=== PATIENT | male | born 1945 | race Caucasian/White ===

== ENCOUNTER 2016-08-26 09:01 | Day surgery (SDC) | payer MEDICARE ==
[~2016-08-26] VITALS: Ht 177.8 cm; Wt 89.9 kg
[2016-08-26 09:30] VITALS: BP 165/100; PULSE 63; RESP 18; O2SAT 100
[2016-08-26] MEDS ORDERED: ASPI81CH CHEW (09:59)
[2016-08-26] MEDS ORDERED: PRAV20TA2 PO (09:59)
[2016-08-26] MEDS ORDERED: METO25TA6 PO (09:59)
[2016-08-26] MEDS ORDERED: HYZA50TA2 PO (09:59)
[2016-08-26 10:15] LABS: AUTOMATED NEUTROPHIL # 3.5 TH/MM3 (1.8-7.7); BASOPHIL % 0.5 % (0.0-2.0); EOSINOPHIL # 0.1 TH/MM3 (0-0.4); EOSINOPHIL % 1.8 % (0.0-4.0); HEMATOCRIT 46.1 % (39.0-51.0); HEMO FLAGS DIFF FINAL; LYMPH % 28.8 % (9.0-44.0); LYMPHOCYTE # 1.7 TH/MM3 (1.0-4.8); MEAN CELL VOLUME 92.7 FL (80.0-100.0); MEAN CORPUSCULAR HEMOGLOBIN 32.6 PG (27.0-34.0); MEAN CORPUSCULAR HGB CONC 35.1 % (32.0-36.0); MONO % 10.2 % (0.0-8.0); NEUT % 58.7 % (16.0-70.0); PLATELET COUNT 196 TH/MM3 (150-450); RED BLOOD COUNT 4.97 MIL/MM3 (4.50-5.90); RED CELL DISTRIBUTION WIDTH 12.9 % (11.6-17.2)
[2016-08-26] MEDS ORDERED: INSULIN HUMAN REGULAR 1,000 UNITS/10 ML VIAL SQ PRN (10:15)
[2016-08-26] MEDS ORDERED: SODIUM CHLORID 0.9% 500 ML INJ 500 ML IV SCH (10:15)
[2016-08-26] MEDS ORDERED: LACTATED RINGER'S 1000 ML IV PRN (10:15)
[2016-08-26] MEDS ORDERED: LORazepam 1 MG TAB SL SCH (10:15)
[2016-08-26] MEDS ORDERED: POVIDONE IODINE 5% (ANTISEPSIS KIT) 4 APPLICATIONS EACH NARE PRN (10:15)
[2016-08-26] MEDS ORDERED: METOPROLOL TARTRATE 25 MG TAB PO PRN (10:15)
[2016-08-26] MEDS ORDERED: SODIUM CHLORID 0.9% 500 ML IV PRN (10:15)
[2016-08-26] MEDS ORDERED: CHLORHEXIDINE GLUCONATE 2 % 1 PACK (2 CLOTHS) TOPICAL PRN (10:15)
[2016-08-26 10:24] LABS: INTERNATIONAL NORMALIZED RATIO 0.9 RATIO; PROTHROMBIN TIME - PATIENT 10.3 SEC (9.8-11.6)
[2016-08-26 10:40] LABS: BICARBONATE 27.6 MEQ/L (21.0-32.0); POTASSIUM 4.4 MEQ/L (3.5-5.1)
[2016-08-26] MEDS ORDERED: MIDAZOLAM HCL 2 MG/2 ML VIAL ONE (12:20)
[2016-08-26] MEDS ORDERED: FAMOTIDINE 20 MG/2 ML VIAL ONE (12:20)
[2016-08-26] MEDS ORDERED: SODIUM CHLOR 0.9% 250 ML INJ 250 ML ONE (12:20)
[2016-08-26] MEDS ORDERED: ISOPROTERENOL HCL 1 MG/5 ML AMP ONE (12:20)
[2016-08-26] MEDS ORDERED: ONDANSETRON HCL 4 MG/2 ML VIAL IV PUSH ONE (13:03)
[2016-08-26] MEDS ORDERED: PROPOFOL 200 MG/20 ML AMP IV ONE (13:03)
--- NOTE | 2016-08-26 13:45 | CATHPROC ---
[facility] HIS Report Study Information Study Number Admission Scheduled Start Study Start [id number] Aug 26 2016 9:01AM 08/26/2016 Aug 26 2016 12:28PM Anita Service Electrophysiology Study Admit Source Facility Department Other [facility] - Human Resources Safety Manager Physician and Clinical Staff Initial Lashay Barrientos Casket Assembler Metal Zabrina Marlow,KAIAKO KURA TUARUA TECH2 Casket Assembler Metal Trav Phillips,RT(R) Other Anesthesia, QUANTITY SURVEYOR Recorder Ashley Oseguera,RN Scrub Enedelia Casas RCIS Equipment Time Expediter Service Order Description Size Mfg Part Number Used/Scraped [id number] 12:29 Unight INDUSTRIES PACK, CCL CUSTOM * Used *[id number] 12:29 Unight PACER FISH, LIMB * 2530 *[id number] Used [id number] 12:29 [employer] BLANKET,WARM AIR CCL * Used *[id number] 12:29 [employer] CATHETER, JSN, QUAD FR 5 Used *[id number] 12:29 [employer] CATHETER, JSN, QUAD FR 5 Used *[id number] 12:29 [employer] CATHETER, JSN, QUAD FR 5 Used *[id number] 12:29 [employer] CATHETER, JSN, QUAD FR 5 Used *[id number] 12:29 [employer] MEDICAL ELECTRODE KIT, BRENDON X SURFACE * [id number] Used [id number] 12:29 [employer] SHEATH, EPS, FR5 FAST CATH FR 5 Used *[id number] [id number] 12:29 [employer] SHEATH, EPS, FR5 FAST CATH FR 5 Used *[id number] 057517 12:29 [employer] SHEATH, EPS, FR5 FAST CATH FR 5 Used *[id number] 12:29 [employer] SHEATH, EPS, FR6 FAST CATH FR 6 [id number] Used [facility], ELECTROSURGICAL 12:29 * [id number] *[id number] Used SURGICAL GROUNDING (BLUE) Medication Medication Total Dose (Bolus/Oral) Medication Total Dosage/Unit 1% XYLOCAINE 20 mL Medications (Bolus/Oral) Medication Time Given Dosage/Unit Administered By Reason 1% XYLOCAINE 08/26/2016 1:04:22 PM 20 mL Lashay Aleman 20 mL 1% XYLOCAINE given in lab by Lashay Aleman in Right Groin via Subcutaneous. Ordered by Mike Aleman. Initial Case Assessment Cardiovascular HR Rhythm NIBP Chest Pain 60 Regular 135/77 0 Edema Present Skin color Skin None Normal Warm Dry Circulatory - Right Pulses Dorsalis Pedis 2 Scale (0,1,2,3,4,d) Circulatory - Left Pulses Dorsalis Pedis 2 Scale (0,1,2,3,4,d) Circulatory - Lower Extremities Color Lower Right Color Lower Left Normal Normal Neurological State Oriented to time-place- Alert Moves all extremities person Respiration - General Respiration Rate SpO2 (%) (B/min) 14 95 Final Case Assessment Cardiovascular HR Rhythm NIBP Chest Pain 62 regular 97/57 0 Edema Present Skin color Skin None Normal Warm Dry Circulatory - Right Pulses Dorsalis Pedis 2 Scale (0,1,2,3,4,d) Circulatory - Left Pulses Dorsalis Pedis 2 Scale (0,1,2,3,4,d) Circulatory - Lower Extremities Color Lower Right Color Lower Left Normal Normal Neurological State Oriented to time-place- Alert Moves all extremities person Respiration - General Respiration Rate SpO2 (%) O2 (lpm) (B/min) 14 98 6 Chronological Log Time Study Chronological Log 12:34:10 Patient arrived via Bed. 12:34:11 Patient Name, D.O.B, / Armband Verified By R.N. 12:34:12 Consent signed by the physician and the patient and verified by the Human Resources Safety Manager staff. 12:34:13 Pre-op and post- op instructions given; patient acknowledges understanding of instructions. 12:34:14 Verbal Stimulation=2 Physical Stimulation=2 Airway=2 Respiration=2 TOTAL=8. (0=absent, 1=li mited, 2=present) Anesthesia at bedside, Will QUANTITY SURVEYOR. Assumes care of patient. See anesth records for all medicatio ns and vitals during 12:34:25 case. 12:34:58 Patient has been NPO for More than 6Hrs. 12:34:59 Skin Breakdown-none per pt 12:35:07 Patient Warmer Placed on the Table. 12:35:08 Disposable Defibrillator Pads Placed On Patient. 12:35:09 Marian Prominences Protected 12:35:12 A # 20 IV was noted in the Hand (left). Grade = 0 0.9NS at KVO infusing 12:35:47 A # 20 IV was noted in the Hand (right). Grade = 0 0.9NS at KVO infusing 12:36:06 History and physical on the chart or being dictated. Assessment: Initial Case, HR=60 BPM, Rhythm=Regular, LVWA=040/77 mmhg, Chest Pain=0, Edema=None , Color=Normal, Skin = Warm, Dry Right Pulses: Lupillo Ped=2 Left Pulses: Lupillo Ped=2 12:36:09 Lower Right Extremities: Color=Normal Lower Left Extremities: Color=Normal Neurological: State=Alert, Ox3, CLARKE Respiration: Resp=14 B/min, SpO2=95 % 12:36:11 Table restraints applied according to hospital policy 12:49:45 Bilateral groins prepped with 2% chlorhexidine, and with a 3 min. waiting time. 12:51:24 MD arrived. 13:02:51 Reference ECG taken Time Out. Correct patient, procedure, procedure equipment, site and side verified with physicia n present. Time 13:03:01 concurred by MD, individual staff and QUANTITY SURVEYOR. Time Out #2 - Consents verified, patient in correct position, all results are labled and displa yed, safety precautions 13:03:18 taken, antibiotics administered. Time out concurred by MD, individual staff and QUANTITY SURVEYOR in procedu re 13:03:22 Case Start 13:04:22 20 mL 1% XYLOCAINE given in lab by Lashay Aleman in Right Groin via Subcutaneous. Ordered b Lashay Lane. 13:04:40 Vascular access was obtained in the Fem Vein (left). 13:04:43 Vascular access was obtained in the Fem Vein (left). 13:04:44 Vascular access was obtained in the Fem Vein (left). 13:05:04 Vascular access was obtained in the Fem Vein (left). 13:05:15 A SHEATH, EPS, FR5 FAST CATH FR 5 was advanced into the Fem Vein (right) using the Modified Seldinger technique. 13:05:30 A SHEATH, EPS, FR5 FAST CATH FR 5 was advanced into the Fem Vein (right) using the Modified Seldinger technique. 13:05:34 A SHEATH, EPS, FR5 FAST CATH FR 5 was advanced into the Fem Vein (right) using the Modified Seldinger technique. 13:05:36 A SHEATH, EPS, FR6 FAST CATH FR 6 was advanced into the Fem Vein (right) using the Modified Seldinger technique. A CATHETER, JSN, QUAD FR 5 was advanced vis Fem Vein (right) and placed in the CS. Placement wa s visually 13:08:48 confirmed under fluoroscopy. A CATHETER, JSN, QUAD FR 5 was advanced vis Fem Vein (right) and placed in the HIS. Placement w as visually 13:09:00 confirmed under fluoroscopy. A CATHETER, JSN, QUAD FR 5 was advanced vis Fem Vein (right) and placed in the RVA. Placement w as visually 13:10:40 confirmed under fluoroscopy. A CATHETER, JSN, QUAD FR 5 was advanced vis Fem Vein (right) and placed in the HRA. Placement w as visually 13:11:00 confirmed under fluoroscopy. 13:11:37 EP study in progress 13:21:54 Isuprel gtt discontinued 13:27:58 Case End 13:29:12 EP Procedure was performed. 13:29:37 Catheter(s) removed without difficulty 13:30:45 Sheath removed; pressure applied to access site by Enedelia Briscoe Assessment: Final Case, HR=62 BPM, Rhythm=regular, NIBP=97/57 mmhg, Chest Pain=0, Edema=None, Color=Normal, Skin = Warm, Dry Right Pulses: Lupillo Ped=2 Left Pulses: Lupillo Ped=2 13:36:35 Lower Right Extremities: Color=Normal Lower Left Extremities: Color=Normal Neurological: State=Alert, Ox3, CLARKE Respiration: Resp=14 B/min, SpO2=98 %, O2=6 lpm 13:37:41 No case complications noted. 13:37:43 Cine recording checked. 13:37:46 DOCU called. Spoke to Edwina 13:38:16 Defibrillator and ground pads removed. Skin intact. 13:40:45 Sterile dressing applied to site 13:45:34 Patient moved to [facility] End Study - Contrast Media Used In Study Contrast Total Opened (mL) Total Used (mL) Total Wasted (mL) Unspecified 0 0 0 End Study - Radiation Exposure Fluoro Time (minutes) 1.8 End Study - Sheaths Sheaths Pulled By Sheath Hold Time (min) Enedelia Casas 20 End Study - Patient Disposition Complications Transferred To Interventional Outcome No Telemetry Bed successful
[2016-08-26] MEDS ORDERED: LIDOCAINE HCL 1% 50 ML VIAL INFIL PRN (14:15)
[2016-08-26] MEDS ORDERED: LORazepam 2 MG/ML VIAL IV PRN (14:15)
[2016-08-26] MEDS ORDERED: ATROPINE SULFATE 1 MG/ML VIAL IV PRN (14:15)
[2016-08-26] MEDS ORDERED: ONDANSETRON HCL 4 MG/2 ML VIAL IV PRN (14:15)
[2016-08-26] MEDS ORDERED: METOCLOPRAMIDE HCL 10 MG/2 ML VIAL IV PRN (14:15)
[2016-08-26] MEDS ORDERED: SODIUM CHLOR 0.9% 250 ML INJ 250 ML IV PRN (14:15)
[2016-08-26] MEDS ORDERED: BACITRACIN OINT 0.9 GM PKT TOP ONE (14:15)
[2016-08-26] MEDS ORDERED: oxyCODONE/ACETAMINOPHEN 5 MG/325 MG TAB PO PRN ×2 (14:15)
--- NOTE | 2016-08-26 15:23 | EKG ---
Date Performed: 08/26/2016 Time Performed: 10:09:32 PTAGE: 71 years EKG: Sinus bradycardia Right bundle branch block Lateral T wave changes may be due to myocardial ischemia There is lateral ST segment elevation, which could actually represent lateral injury. As th ere's no prior tracing, clinical correlation will be extremely important Abnormal ECG NO PREVIOUS TRACING DOCTOR: Jacqueline Thomas Interpretating Date/Time 08/26/2016 15:22:47
== END 2016-08-26 16:25 | disposition home or self-care (01) ==
LOC: HDOC 09:01 → HDIC 09:01 → HDOC 16:25
PROVIDERS: ATTEND Internal Medicine Interventional Cardiology
DX: I47.1 Supraventricular tachycardia (principal); R00.2 Palpitations; R55 Syncope and collapse; I10 Essential (primary) hypertension; E78.5 Hyperlipidemia, unspecified; Z01.810 Encounter for preprocedural cardiovascular examination; Z01.818 Encounter for other preprocedural examination
CPT/HCPCS: 00537; 80048; 85025; 85610; 85730; 86850; 86900; 86901; 93005; 93620; 93623; C1730; C1732; J2250; J2405; J7050

== ENCOUNTER 2016-12-22 06:14 | Day surgery (SDC) | payer MEDICARE ==
[~2016-12-22] VITALS: Ht 179.1 cm; Wt 82.0 kg
[2016-12-22] VITALS (9 sets, daily range): BP systolic 117–147; BP diastolic 70–92; PULSE 53–58; RESP 18; TEMP 97.9–98.4; O2SAT 97–99
[~2016-12-22 06:14] MED LIST: ASPI81CH CHEW; HYZA50TA2 PO; METO25TA6 PO; PRAV20TA2 PO
[2016-12-22] MEDS ORDERED: CHLORHEXIDINE GLUCONATE 2 % 1 PACK (2 CLOTHS) TOPICAL PRN (06:45)
[2016-12-22] MEDS ORDERED: SODIUM CHLORID 0.9% 500 ML IV PRN (06:45)
[2016-12-22] MEDS ORDERED: CHLORHEXIDINE GLUCONATE 2 % 1 PACK (2 CLOTHS) TOPICAL SCH (06:45)
[2016-12-22] MEDS ORDERED: METOPROLOL TARTRATE 25 MG TAB PO PRN (06:45)
[2016-12-22] MEDS ORDERED: LORazepam 1 MG TAB SL SCH (06:45)
[2016-12-22] MEDS ORDERED: Hold AM Insulin & AM Hypoglycemic medications in diabetic patients PRN (06:45)
[2016-12-22] MEDS ORDERED: POVIDONE IODINE 5% (ANTISEPSIS KIT) 4 APPLICATIONS EACH NARE SCH (06:45)
[2016-12-22] MEDS ORDERED: LACTATED RINGER'S 1000 ML IV PRN (06:45)
[2016-12-22] MEDS ORDERED: POVIDONE IODINE 5% (ANTISEPSIS KIT) 4 APPLICATIONS EACH NARE PRN (06:45)
[2016-12-22] MEDS ORDERED: VANCOMYCIN 1000 MG/NS 250 ML IV SCH ×2 (06:45)
[2016-12-22] MEDS ORDERED: INSULIN HUMAN REGULAR 1,000 UNITS/10 ML VIAL SQ PRN (06:45)
[2016-12-22] MEDS ORDERED: ceFAZolin 2 GM PREMIX 50 ML IV SCH (06:45)
[2016-12-22] MEDS ORDERED: MUPIROCIN 2% OINT 1 APPLIC/GM SYR NASAL SCH (06:45)
[2016-12-22 07:13] LABS: AUTOMATED NEUTROPHIL # 3.2 TH/MM3 (1.8-7.7); BASOPHIL % 0.4 % (0.0-2.0); EOSINOPHIL # 0.1 TH/MM3 (0-0.4); EOSINOPHIL % 2.1 % (0.0-4.0); HEMATOCRIT 46.8 % (39.0-51.0); HEMO FLAGS DIFF FINAL; LYMPH % 29.4 % (9.0-44.0); LYMPHOCYTE # 1.7 TH/MM3 (1.0-4.8); MEAN CELL VOLUME 93.4 FL (80.0-100.0); MEAN CORPUSCULAR HEMOGLOBIN 32.5 PG (27.0-34.0); MEAN CORPUSCULAR HGB CONC 34.8 % (32.0-36.0); MONO % 11.4 % (0.0-8.0); NEUT % 56.7 % (16.0-70.0); PLATELET COUNT 177 TH/MM3 (150-450); RED BLOOD COUNT 5.01 MIL/MM3 (4.50-5.90); RED CELL DISTRIBUTION WIDTH 12.6 % (11.6-17.2); WHITE BLOOD COUNT 5.7 TH/MM3 (4.0-11.0)
[2016-12-22 07:30] LABS: APTT (PATIENT) 28.4 SEC (24.3-30.1); INTERNATIONAL NORMALIZED RATIO 0.9 RATIO; PROTHROMBIN TIME - PATIENT 10.3 SEC (9.8-11.6)
[2016-12-22 07:34] LABS: BICARBONATE 28.2 MEQ/L (21.0-32.0); POTASSIUM 3.7 MEQ/L (3.5-5.1)
[2016-12-22] MEDS ORDERED: LIDOCAINE HCL 2% 50 ML VIAL ONE (08:11)
[2016-12-22] MEDS ORDERED: HEPARIN-NS/PF INJ 1,000 ML ONE (08:11)
[2016-12-22] MEDS ORDERED: VANCOMYCIN 500 MG VIAL ONE (08:12)
[2016-12-22] MEDS ORDERED: ONDANSETRON HCL 4 MG/2 ML VIAL IV PUSH PRN (09:15)
[2016-12-22] MEDS ORDERED: ACETAMINOPHEN/CODEINE 300 MG/30 MG TAB PO PRN ×2 (09:15)
[2016-12-22] MEDS ORDERED: MAGNESIUM HYDROXIDE SUSP 30 ML CUP PO PRN (09:15)
[2016-12-22] MEDS ORDERED: SODIUM CHLORIDE 0.9% FLUSH 10 ML FLUSH IV FLUSH PRN (09:15)
--- NOTE | 2016-12-22 09:28 | CATHPROC ---
[employer] HIS Report Study Information Study Number Admission Scheduled Start Study Start [id number] Dec 22 2016 6:14AM 12/22/2016 Dec 22 2016 6:58AM Sharon Service Cardiac Pacer/ICD Admit Source Facility Department Other [facility] - Swimming Coach Or Instructor Physician and Clinical Staff Initial Lashay Barrientos Jack Prizer Aisha Siegel RN Other Anesthesia, ARCHITECTURAL TECHNOLOGIST Recorder Ame Egan,RT(R) TECH2 Scrub Jossue Capps RCIS(BS) Scrub Trav Phillips,RT(R) Procedures Performed Procedure Lead Insertion Equipment Time Quarter Section Ironer Description Size Mfg Part Number Used/Scraped [employer]/ EP 08:51 LEAD, INGEVITY MRI 52CM 52CM [id number] Used PACER [employer]/ EP 08:48 LEAD, INGEVITY MRI 59CM 59CM 7742 Used PACER [employer]/ EP 08:56 PACEMAKER, ACCOLADE MRI DR BREWSTER [id number] Used PACER DERMABOND, ADHESIVE SKIN [id number] 07:00 CORDIS/PACER * Used GLUE MINI *[id number] 07:00 ivi, Inc. SUTURE, STRIP PLUS 1/2" * Used *[id number] 07:00 [employer] PACER FISH, LIMB * 2530 *[id number] Used [id number] 07:00 [employer] PACER PACK, PACER CUSTOM * Used *[id number] 08:26 Thrill On PACER SAFE SHEATH, FR7, 13CM FR 7 [id number] Used 08:27 Thrill On PACER SAFE SHEATH, FR7, 13CM FR 7 [id number] Used 08:27 Needle Sponge Count 4 4 Used 08:27 Needle Sponge Count 4 44 Used SUTURE, 0 ETHIBOND [CT1] (CX21D), 8pk SUTURE, 2-0 VICRYL [CT1] ([id number]) SUTURE, 2-0 VICRYL [CT1] ([id number]) [id number] 07:00 [employer] BLANKET,WARM AIR CCL * Used *[id number] [facility] PAD, ELECTROSURGICAL 07:00 * [id number] *[id number] Used SURGICAL GROUNDING ORANGE [id number] 07:00 [employer] MIRI. / * Used *[id number] Equipment Model, Serial, Lot Number and Expiration Data Description Model Number Serial Number Lot Number Expiration Date LEAD, INGEVITY MRI 52CM 7741-52 [id number] 11-18-2018 LEAD, INGEVITY MRI 59CM 7742-59 [id number] 08-27-2018 PACEMAKER, ACCOLADE MRI DR L311 [id number] 10-25-2018 History: Current Medications Medication Dosage/Unit Route Frequency Last Date/Time Taken ASA Statins (any) LOPRESSOR History: Allergies Allergy Reaction No Known Allergies History: Risk Factors Family History of Hypertension Dyslipidemia Previous SD Previous Heart Failure Premature CAD Yes Yes No No No Prior Valve Prior PCI Prior CABG Surgery No No No Cerebrovascular Peripheral Artery Chronic Lung On Dialysis Diabetes Disease Disease Disease No No No No No History: Symptoms/Diagnosis Selection Items Syncope Labs Hgb (g/dl) Hct (%) RBC (MIL/MM3) WBC (l/cumm) Platelets (thousands) 11.60-17.00 35.00-51.00 4.00-5.90 4.00-11.00 150.00-450.00 16.3 46.8 5 5.7 177 Glucose (mg/dl) BUN (mg/dl) Creatinine (mg/dl) BUN:Creatinine (1:x) 74.00-106.00 7.00-18.00 0.50-1.30 10.00-20.00 93 27 1.2 22.5 Na (meq/l) K (meq/l) Cl (meq/l) CO2 (mmol/L) Ca (mg/dl) 136.00-145.00 3.50-5.10 98.00-107.00 21.00-32.00 8.50-10.10 138 3.7 104 28.2 9.2 PT (sec) PTT (sec) INR (PTT:PT) 9.80-11.60 24.30-30.10 0.90-1.10 10.3 28.4 0.9 Medication (Drip) Medication Time Given Dosage/Unit Concentration/Unit Diluent (ml) Solution ANCEF 12/22/2016 8:17:48 AM 2 g 2 g ANCEF given in lab by Anesthesia, ARCHITECTURAL TECHNOLOGIST in Right Antecubital via Peripheral IV. Ordered by Lashay Aleman. IV Solutions 12/22/2016 8:14:43 AM 0 mL (IV) 500 NaCl .9 IV Solutions given pre op by Aisha Siegel RN in Right Antecubital via Peripheral IV. Pump/Drip Sander w = 20 ml/hr using NaCl .9. Ordered by Lashay Aleman. IV Solutions 12/22/2016 8:15:10 AM 0 mL (IV) 500 NaCl .9 IV Solutions given pre op by Aisha Siegel, ALE in Left Antecubital via Peripheral IV. Pump/Drip Flow = 20 ml/hr using NaCl .9. Ordered by Lashay Aleman. VANCOMYCIN DRIP 12/22/2016 8:18:11 AM 1 g 1 g VANCOMYCIN DRIP given in lab by ANNA Raman in Right Antecubital via Peripheral IV. Ordered by Lashay Aleman. Initial Case Assessment Cardiovascular HR Rhythm NIBP Chest Pain 55 sr 92/54 0 Edema Present Skin color Skin None Normal Warm Dry Circulatory - Right Pulses Dorsalis Pedis Femoral 2 2 Scale (0,1,2,3,4,d) Circulatory - Left Pulses Dorsalis Pedis Femoral 2 2 Scale (0,1,2,3,4,d) Neurological State Oriented to time-place- Alert Moves all extremities person Respiration - General Respiration Rate SpO2 (%) (B/min) 18 99 Final Case Assessment Cardiovascular HR Rhythm NIBP Chest Pain 56 sr 87/51 0 Edema Present Skin color Skin None Normal Warm Dry Circulatory - Right Pulses Dorsalis Pedis Femoral 2 2 Scale (0,1,2,3,4,d) Scale (0,1,2,3,4,d) Neurological State Oriented to time-place- Alert Moves all extremities person Respiration - General Respiration Rate SpO2 (%) (B/min) 18 95 Chronological Log Time Study Chronological Log 8:05:41 Patient arrived via Bed. 8:13:15 Patient Name, D.O.B, / Armband Verified By R.N. 8:13:16 Pre-op and post- op instructions given; patient acknowledges understanding of instructions. 8:13:18 Anesthesia at bedside. Assumes care of patient. Dmitri ARCHITECTURAL TECHNOLOGIST 8:13:24 Presedation assessment performed by Swimming Coach Or Instructor RN. 8:13:25 Patient has been NPO for More than 6Hrs. 8:13:58 Skin Breakdown-none per patient 8:14:15 Patient Warmer Placed on the Table. 8:14:16 Disposable Defibrillator Pads Placed On Patient. 8:14:19 Marian Prominences Protected 8:14:21 A # 20 IV was noted in the Antecubital (left). Grade = 0 8:14:31 A # 20 IV was noted in the Antecubital (right). Grade = 0 8:14:41 History and physical on the chart or being dictated. IV Solutions given pre op by Aisha Siegel RN in Right Antecubital via Peripheral IV. Pump/Dri p Flow = 20 ml/hr 8:14:43 using NaCl .9. Ordered by Lashay Aleman. IV Solutions given pre op by Aisha Siegel RN in Left Antecubital via Peripheral IV. Pump/Drip Flow = 20 ml/hr using 8:15:10 NaCl .9. Ordered by Lashay Aleman. 8:15:17 Table restraints applied according to hospital policy Assessment: Initial Case, HR=55 BPM, Rhythm=sr, NIBP=92/54 mmhg, Chest Pain=0, Edema=None, Color =Normal, Skin = Warm, Dry Right Pulses: Lupillo Ped=2, Femoral=2 8:15:20 Left Pulses: Lupillo Ped=2, Femoral=2 Neurological: State=Alert, Ox3, CLARKE Respiration: Resp=18 B/min, SpO2=99 % 8:15:59 Reference ECG taken 8:16:28 Bovie ground pad applied to: right hip 8:17:26 2% CHLORHEXIDINE GLUCONATE WASH AND NASAL SWIPE DONE PRIOR TO PROCEDURE. 8:17:30 Pre-procedure assessment data was performed with the previous procedure. First Sponge And Instrument Count Done by Aisha Siegel RN. 8:17:39 Hypo's: 4, Sponges: sponges, Bovie/scratch: bovie/scratch Sutures: 10, Blades: 1, Instruments: 26, Syveck Patches: 0 10 laps, 10 raytecs, 1 bovie, 1 scrat ch 8:17:48 2 g ANCEF given in lab by Anesthesia, ARCHITECTURAL TECHNOLOGIST in Right Antecubital via Peripheral IV. Ordered Lashay Talbert. 1 g VANCOMYCIN DRIP given in lab by Anesthesia, ARCHITECTURAL TECHNOLOGIST in Right Antecubital via Peripheral IV. Ord ered by Ash 8:18:11 8:18:50 Left Upper Chest Prepped Times Two. 8:32:20 paged 8:35:53 MD arrived. Time Out. Correct patient, procedure, procedure equipment, site and side verified with physician present. Time 8:41:36 concurred by MD, individual staff and ARCHITECTURAL TECHNOLOGIST. Time Out #2 - Consents verified, patient in correct position, all results are labled and display ed, safety precautions 8:41:38 taken, antibiotics administered. Time out concurred by MD, individual staff and ARCHITECTURAL TECHNOLOGIST in procedur e 8:42:40 Case Start 8:43:21 Vascular access was obtained in the Subclav. Vein (Lft. 8:44:12 Wire inserted 8:44:34 Vascular access was obtained in the Subclav. Vein (Lft. 8:44:37 Wire inserted 8:44:39 Surgical Incision Made. 8:44:44 A pocket was created at the L Upper Chest. 8:45:49 A SAFE SHEATH, FR7, 13CM FR 7 was advanced into the Subclav. Vein (Lft using the Percutaneou s technique. 8:47:08 A LEAD, INGEVITY MRI 59CM 59CM was inserted and positioned in the RV. 8:48:27 Lead placement verified under fluoroscopy 8:48:29 The RV lead impedance and threshold being tested. 8:50:02 The RV lead was sutured to the fascia. 8:50:13 A SAFE SHEATH, FR7, 13CM FR 7 was advanced into the Subclav. Vein (Lft using the Percutaneou s technique. 8:50:23 A LEAD, INGEVITY MRI 52CM 52CM was inserted and positioned in the RA. 8:50:43 Lead placement verified under fluoroscopy 8:50:46 The Atrial lead impedance and threshold is being tested. 8:54:03 The Atrial lead was sutured to the fascia. 8:54:55 Pocket flushed with antibiotic solution 8:56:33 A PACEMAKER, ACCOLADE MRI DR BREWSTER was connected and placed in the pocket. 8:56:41 Implant Procedure was performed. 8:56:50 A PPM Implant . (Dual) 8:58:25 The pocket was closed. Second Sponge And Instrument Count Done by Lashay Aleman. Hypo's: 4, Sponges: sponges, Bovie/scratch: bovie/scratch 8:58:53 Sutures: ~SUTURE~, Blades: 1, Instruments: ~INSTRU~, Syveck Patches: 0 10 laps, 10 raytecs, 1 ameya vie, and 1 scratch The Final Sponge And Instrument Count Done by Lashay Aleman. 9:02:37 Hypo's: 4, Sponges: 4, Bovie/scratch: bovie/scratch Sutures: 10, Blades: 1, Instruments: 26, Syveck Patches: 0 10 laps, 10 raytecs, 1 bovie, and 1 s cratch 9:03:08 Case End 9:05:54 Steri-strips and a sterile dressing applied to site. Assessment: Final Case, HR=56 BPM, Rhythm=sr, NIBP=87/51 mmhg, Chest Pain=0, Edema=None, Color=N ormal, Skin = Warm, Dry 9:06:42 Right Pulses: Lupillo Ped=2, Femoral=2 Neurological: State=Alert, Ox3, CLARKE Respiration: Resp=18 B/min, SpO2=95 % 9:09:17 No case complications noted. 9:11:22 A sling was placed on the affected arm. 9:11:37 Bedside Report will be given. 9:11:41 DOCU called. Spoke to Jerrica AGUILERA 9:15:59 Patient moved to [facility] End Study - Contrast Media Used In Study Contrast Total Opened (mL) Total Used (mL) Total Wasted (mL) Unspecified 0 0 0 End Study - Maximum Contrast Load Max Contrast Load (mL) 341.7 End Study - Radiation Exposure Fluoro Time (minutes) 2.5 End Study - Patient Disposition Complications Transferred To Interventional Outcome No Telemetry Bed successful
[2016-12-22] MEDS: ASPIRIN 81 MG CHEW TAB CHEW SCH (10:00)
[2016-12-22] MEDS ORDERED: DO NOT ADM ANY ANTICOAGULANT DRUGS PRN (10:15)
[2016-12-22] MEDS: LOSARTAN 50 MG TAB PO SCH (10:30)
[2016-12-22] MEDS: PRAVASTATIN SOD 20 MG TAB PO SCH (11:00)
[2016-12-22] MEDS: METOPROLOL SUCCINATE 25 MG EXTENDED RELEASE TAB PO SCH (11:00)
--- NOTE | 2016-12-22 11:25 | RADRPT ---
EXAM DATE/TIME: 12/22/2016 10:38 [place] COMPARISON: No previous studies available for comparison. INDICATIONS : Status post pacemaker. MEDICAL HISTORY : None. SURGICAL HISTORY : None. ENCOUNTER: Initial ACUITY: 1 day PAIN SCORE: 0/10 LOCATION: Bilateral chest FINDINGS: Pacemaker good position. Mild compensated cardiomegaly negative for infiltrate or failure. The porti on of the bony skeleton visualized is unremarkable. CONCLUSION: Pacemaker in good position without pneumothorax. Hosea Rivas MD FACR on December 22, 2016 at 11:18 Board Certified Radiologist. This report was verified electronically.
[2016-12-22] MEDS ORDERED: PROPOFOL 200 MG/20 ML AMP IV ONE (12:00)
[2016-12-22] MEDS ORDERED: ePHEDrine/NS 25 MG/5 ML SYR IV ONE (12:00)
[2016-12-22] MEDS: HYDROCHLOROTHIAZIDE 12.5 MG CAP PO SCH (12:00)
[2016-12-22] MEDS ORDERED: MIDAZOLAM HCL 2 MG/2 ML VIAL IV ONE (12:00)
--- NOTE | 2016-12-22 13:46 | EKG ---
Date Performed: 12/22/2016 Time Performed: 07:05:56 PTAGE: 71 years EKG: Sinus bradycardia Right bundle branch block Lateral infarct - age undetermined Abnormal ECG PREVIOUS TRACING : 08/26/2016 10.09 DOCTOR: Yoel Hernandez Interpretating Date/Time 12/22/2016 13:42:13
[2016-12-22] MEDS: ceFAZolin 2 GM PREMIX 50 ML IV SCH (16:48)
[2016-12-22] MEDS: SODIUM CHLORIDE 0.9% FLUSH 10 ML FLUSH IV FLUSH SCH (21:00)
[2016-12-22] MEDS: NS 1000 ML IV SCH (22:50)
[2016-12-23] VITALS (9 sets, daily range): BP systolic 116–124; BP diastolic 71–76; PULSE 54–59; RESP 18; TEMP 97.4–99.2; O2SAT 96–97
[2016-12-23] MEDS: ceFAZolin 2 GM PREMIX 50 ML IV SCH ×2 (01:13→09:00)
[2016-12-23] MEDS: NS 1000 ML IV SCH (06:45)
[2016-12-23] MEDS ORDERED: HYDR12.57 PO (07:53)
[2016-12-23] MEDS ORDERED: CEPH-460 PO (07:53)
--- NOTE | 2016-12-23 07:56 | PD.CARD.PN ---
Subjective Subjective Remarks Feels better. Objective Medications Current Medications Medications (Trade) Dose Ordered Sig/Monico Route Start Time Stop Time Status Last Admin Miscellaneous Information Hold AM Insulin & ... UNSCH PRN .XX 12/22/16 06:45 12/26/16 06:44 Sodium Chloride 1,000 ml @ 30 mls/hr Q24H IV 12/22/16 06:45 12/22/16 22:50 Cefazolin Sodium/ Dextrose 50 ml @ 100 mls/hr MOLDER IV 12/22/16 06:45 12/25/16 06:44 Vancomycin HCl 1000 mg/Sodium Chloride 250 ml @ 250 mls/hr MOLDER IV 12/22/16 06:45 12/25/16 06:44 (Ativan) 1 mg MOLDER SL 12/22/16 06:45 12/25/16 06:44 (Betadine 5% Antisepsis Kit) 2 applic MOLDER EACH NARE 12/22/16 06:45 12/25/16 06:44 12/22/16 07:28 (Bactroban Nasal 2% Oint) 1 applic MOLDER NASAL 12/22/16 06:45 12/25/16 06:44 (Chlorhexidine 2% Cloth) 3 pack MOLDER TOPICAL 12/22/16 06:45 12/25/16 06:44 12/22/16 07:28 Lactated Ringer's 1,000 ml @ 30 mls/hr Q24H PRN IV 12/22/16 06:45 12/25/16 06:44 Sodium Chloride 500 ml @ 30 mls/hr [id number] PRN IV 12/22/16 06:45 12/25/16 06:44 (Lopressor) 25 mg MOLDER PRN PO 12/22/16 06:45 12/25/16 06:44 (Betadine 5% Antisepsis Kit) 1 applic MOLDER PRN EACH NARE 12/22/16 06:45 12/25/16 06:44 (Chlorhexidine 2% Cloth) 3 pack MOLDER PRN TOPICAL 12/22/16 06:45 12/25/16 06:44 (NovoLIN R INJ) See Protocol Table ... MOLDER PRN SQ 12/22/16 06:45 12/25/16 06:44 Cefazolin Sodium/ Dextrose 50 ml @ 100 mls/hr Q8H IV 12/22/16 17:00 12/23/16 09:29 12/23/16 01:13 (Milk Of Magnesia Liq) 30 ml Q6H PRN PO 12/22/16 09:15 (Zofran Inj) 4 mg Q4H PRN IV PUSH 12/22/16 09:15 (Tylenol-Codeine #3) 1 tab Q4H PRN PO 12/22/16 09:15 (Tylenol-Codeine #3) 2 tab Q4H PRN PO 12/22/16 09:15 (NS Flush) 2 ml BID IV FLUSH 12/22/16 21:00 (NS Flush) 2 ml UNSCH PRN IV FLUSH 12/22/16 09:15 (Aspirin Chew) 81 mg DAILY CHEW 12/22/16 10:00 12/22/16 10:00 (Toprol Xl) 25 mg DAILY PO 12/22/16 11:00 (Pravachol) 20 mg DAILY PO 12/22/16 11:00 (Cozaar) 50 mg DAILY PO 12/22/16 10:30 Miscellaneous Information ALL NURSING DEPARTME... UNSCH PRN .XX 12/22/16 10:15 12/23/16 10:14 (Microzide) 12.5 mg DAILY PO 12/22/16 12:00 Vital Signs / I&O Vital Signs Date Time Temp Pulse Resp B/P (MAP) Pulse Ox O2 Delivery O2 Flow Rate FiO2 12/23/16 06:00 57 12/23/16 05:00 56 12/23/16 04:00 55 12/23/16 04:00 99.2 58 18 124/76 (92) 96 12/23/16 03:00 54 12/23/16 02:00 58 12/23/16 01:00 56 12/23/16 00:00 59 12/23/16 00:00 98.9 58 18 117/75 (89) 96 12/22/16 23:00 56 12/22/16 22:00 56 12/22/16 21:00 56 12/22/16 20:00 Room Air 12/22/16 20:00 57 12/22/16 20:00 98.2 58 18 117/70 (86) 97 10/18/17 18:06 54 12/22/16 17:38 53 12/22/16 16:08 55 12/22/16 15:02 57 12/22/16 15:02 98.4 57 18 138/88 (105) 98 12/22/16 09:21 98 Room Air I/O 12/22/16 12/22/16 12/22/16 12/23/16 12/23/16 12/23/16 06:59 14:59 22:59 06:59 14:59 22:59 Intake Total 530 ml 349 ml Balance 530 ml 349 ml Intake Oral 480 ml 240 ml IV Total 50 ml 109 ml # Voids 2 2 # Bowel Movements 0 Physical Exam GENERAL: Well-nourished, well-developed patient. SKIN: Warm and dry. Left chest wall incision well approximated without erythema or drainage. HEAD: Normocephalic. EYES: No scleral icterus. No injection or drainage. NECK: Supple, trachea midline. No JVD or lymphadenopathy. CARDIOVASCULAR: Regular rate and rhythm without murmurs, gallops, or rubs. RESPIRATORY: Breath sounds equal bilaterally. No accessory muscle use. GASTROINTESTINAL: Abdomen soft, non-tender, nondistended. EXTREMITIES: No cyanosis, or edema. NEUROLOGICAL: Awake, alert, and oriented x 3. Non-focal. Imaging Last Impressions Chest X-Ray 12/22/16 0000 Signed Impressions: Service Date/Time: Thursday, December 22, 2016 10:38 - CONCLUSION: Pacemaker in good position without pneumothorax. Hosea Rivas MD FACR Assessment and Plan Problem List: (1) Syncope ICD Codes: R55 - Syncope and collapse Plan: No recurrence. Status post permanent pacemaker. (2) S/P cardiac pacemaker procedure ICD Codes: Z95.0 - Presence of cardiac pacemaker Plan: Chest x-ray negative, device will functioning. Discharge home. Follow- up with Dr. rodriguez in 2 weeks per my discussion with him. Sharda Gallegos Dec 23, 2016 07:56
[2016-12-23] MEDS: HYDROCHLOROTHIAZIDE 12.5 MG CAP PO SCH (09:01)
[2016-12-23] MEDS: PRAVASTATIN SOD 20 MG TAB PO SCH (09:02)
[2016-12-23] MEDS: METOPROLOL SUCCINATE 25 MG EXTENDED RELEASE TAB PO SCH (09:02)
[2016-12-23] MEDS: ASPIRIN 81 MG CHEW TAB CHEW SCH (09:02)
[2016-12-23] MEDS: SODIUM CHLORIDE 0.9% FLUSH 10 ML FLUSH IV FLUSH SCH (09:02)
[2016-12-23] MEDS: LOSARTAN 50 MG TAB PO SCH (09:02)
--- NOTE | 2016-12-23 12:47 | EKG ---
Date Performed: 12/23/2016 Time Performed: 05:56:44 PTAGE: 71 years EKG: Sinus bradycardia with 1st degree A-V block Right bundle branch block Lateral T wave change s are nonspecific Abnormal ECG PREVIOUS TRACING : 12/22/2016 07.05 Cannot exclude ischemia; although, no change seen from the prior tracing. DOCTOR: Neptali Rios Interpretating Date/Time 12/23/2016 12:45:44
--- NOTE | 2016-12-30 10:13 | PD.CARD ---
DUAL PPM IMPLANTATION PROCEDURE DATE: Dec 22, 2016 DUAL PPM IMPLANTATION PROCEDURE: Dual chamber permanent pacemaker implantation. INDICATIONS FOR PROCEDURE: Mr. Ivan is a 71 -year-old male with hx of syncope, severe bradycardia, symptomatica, on no negative chronotropic medication who undergo pacer insertion. The risks, the nature and the benefit of the procedure were clearly stated to him . The risks include pneumothorax, cardiac perforation, stroke and even . He understood and agreed to proceed. PROCEDURE After written informed consent was obtained, the patient was transferred to the EP lab where he was prepped and draped in the usual sterile fashion. Conscious sedation was initiated and maintained throughout the procedure by the anesthesiologist. Once sedation was verified, the left infraclavicular area was with 2% Xylocaine. Using modified Seldinger technique, the left subclavian vein was cannulated on two occasions and two guidewires were advanced. Then, using a #11 blade scalpel, a 2 cm was made two fingerbreadths below the left clavicle. This incision was then taken down through the deep fascial layer using Bovie cautery and blunt dissection. Into the inferomedial direction, device pocket was dissected, then the wire was dissected into the pocket. A 2- 0 Vicryl suture was placed around the wire to prevent backbleeding. At this point, over the lateral wire, an 7-Nigerian dilator and introducer was advanced. As the dilator and wire were removed, an active fixation right ventricular pacing and sensing lead was advanced. After adequate pacing and sensing thresholds were obtained, the lead was secured in the pocket using 2-0 Ethibond suture. Then, over the remaining wire, an 7-Nigerian dilator and introducer was advanced. As the dilator and wire were removed, an active fixation right atrial pacing and sensing lead was advanced. After adequate pacing and sensing thresholds were obtained, the lead was secured into the pocket using 2-0 Ethibond suture. At that point, the pocket was copiously irrigated using antibiotic solution. This was connected to the generator and placed into the pocket. I did proceed with wound closure. The deep fascial layer was approximated using 2-0 Vicryl suture in a continuous fashion. The subcutaneous layer was approximated with 2-0 Vicryl suture in a continuous fashion. The subcuticular layer was approximated with 2-0 Vicryl suture in a continuous fashion. Dermabond adhesive was applied to the wound followed by sterile pressure dressing. There was no complication. The patient tolerated procedure. Blood loss minimal. IMPLANTED HARDWARE The permanent pacemaker is a [employer]. Model # L311 serial number [id number]. The right atrial pacing and sensing lead is a [employer] model number 7741-52, serial number [id number]. The right ventricular pacing and sensing lead is a [employer] model number 7742-59, serial number [id number]. THRESHOLDS The right atrial pacing threshold in the bipolar mode was 0.8 @ 0.5 milliseconds, lead impedance 640 ohms and P-wave at 4.6 millivolts. The right ventricular pacing threshold in the bipolar mode was 0.6V @ 0.5 milliseconds, lead impedance 822 ohms and R-wave at the 10.4 millivolts. SETTINGS The device was set in the DDD 50, upper limit 130 beats per minute. Hysteresis and mode switch are on. CONCLUSIONS: Successful permanent pacemaker implantation, COMMENT AND RECOMMENDATION The patient will be transferred to the telemetry unit. He will be observed. When stable, he can be discharged home. Lashay Aleman MD Dec 30, 2016 10:13
== END 2016-12-23 09:34 | disposition home or self-care (01) ==
LOC: HDOC 06:14 → HDIC 06:15 → HCIN 14:29 → HDOC 12-23 09:34
PROVIDERS: ATTEND Internal Medicine Interventional Cardiology
DX: I49.5 Sick sinus syndrome (principal); I44.0 Atrioventricular block, first degree; I47.2 Ventricular tachycardia; I10 Essential (primary) hypertension; Z79.82 Long term (current) use of aspirin; Z51.89 Encounter for other specified aftercare
CPT/HCPCS: 00530; 33208; 71010; 80048; 85025; 85610; 85730; 86850; 86900; 86901; 93005; C1785; C1898; J0690; J1644; J2250; J3010; J3370; J7030